=== PATIENT | female | born 1995 | race Two or more races ===

== ENCOUNTER 2017-08-21 09:49 | Outpatient (CLI) | payer OTHER | END 2017-08-21 10:04 | disposition home or self-care (01) | LOC: RAD 501 09:49 | DX: M25.571 Pain in right ankle and joints of right foot (principal) ==

== ENCOUNTER 2021-04-05 09:09 | Day surgery (SDC) | payer OTHER | END 2021-04-05 12:50 | disposition home or self-care (01) | LOC: AMB-ENDOS 09:09 | PROVIDERS: ATTEND Colon & Rectal Surgery | DX: K62.89 Other specified diseases of anus and rectum (principal); K64.8 Other hemorrhoids; Z20.822 Contact with and (suspected) exposure to COVID-19; Z12.11 Encounter for screening for malignant neoplasm of colon ==

== ENCOUNTER 2022-11-17 04:47 | Emergency (ER) | payer OTHER ==
[~2022-11-17] VITALS: Ht 167.6 cm; Wt 74.8 kg
[2022-11-17] MEDS ORDERED: SYNTHROID100 MCG PO (05:06)
== END 2022-11-17 05:34 | disposition home or self-care (01) ==
LOC: ER 04:47
DX: R11.10 Vomiting, unspecified (principal)